=== PATIENT | male | born 1945 | race Caucasian/White ===

== ENCOUNTER → 2022-10-25 | Outpatient (CLI) | payer OTHER | END | disposition home or self-care (01) | LOC: OIH 09:52 | PROVIDERS: ATTEND Internal Medicine Cardiovascular Disease | DX: Z13.6 Encounter for screening for cardiovascular disorders (principal) | CPT/HCPCS: 75571 ==

== ENCOUNTER → 2024-04-23 | Outpatient (CLI) | payer OTHER ==
--- NOTE | 2024-04-23 10:58 | HMCIMG ---
LEFT KNEE RADIOGRAPHS - 3 VIEWS INDICATION: Pain COMPARISON: None FINDINGS: AP, lateral, and oblique views. No fracture or dislocation identified. Mild tricompartmental left knee osteoarthropathy. No significant joint effusion is present. Overlying soft tissues appear normal. No radiopaque foreign body noted. IMPRESSION: Mild tricompartmental left knee osteoarthropathy without evidence for fracture or dislocation.
--- NOTE | 2024-04-23 11:01 | HMCIMG ---
RIGHT KNEE RADIOGRAPHS - 3 VIEWS INDICATION: Pain COMPARISON: None FINDINGS: AP, lateral, and oblique views. No acute fracture or dislocation identified. No significant joint effusion is present. Overlying soft tissues appear normal. IMPRESSION: No evidence for fracture or dislocation.
--- NOTE | 2024-04-23 11:01 | HMCIMG ---
LEFT SHOULDER RADIOGRAPHS - 2-3 VIEWS INDICATION: Pain COMPARISON: None FINDINGS: No evidence for acute fracture or dislocation. Acromioclavicular and glenohumeral alignments are well maintained. Visible portions of the left clavicle are intact. Mild acromioclavicular joint osteoarthropathy. Nominal inferior glenohumeral joint osteoarthropathy. IMPRESSION: Degenerative changes as described, without evidence for fracture or dislocation.
--- NOTE | 2024-04-23 11:02 | HMCIMG ---
RIGHT SHOULDER RADIOGRAPHS - 2-3 VIEWS INDICATION: Pain COMPARISON: None FINDINGS: No fracture or dislocation identified. Acromioclavicular and glenohumeral alignments are well maintained. Visible portions of the right clavicle are intact. 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 IMPRESSION: Degenerative changes as described, without evidence for fracture or dislocation.
== END | disposition home or self-care (01) ==
LOC: RAH 09:52
DX: M19.011 Primary osteoarthritis, right shoulder (principal); M19.012 Primary osteoarthritis, left shoulder; M17.12 Unilateral primary osteoarthritis, left knee; M25.511 Pain in right shoulder; M25.512 Pain in left shoulder; M25.561 Pain in right knee; M25.562 Pain in left knee
CPT/HCPCS: 73030; 73562